=== PATIENT | female | born 1985 | race Two or more races ===

== ENCOUNTER 2024-02-01 12:16 | Emergency (ER) | payer OTHER ==
[~2024-02-01] VITALS: Ht 160 cm; Wt 81.6 kg
[2024-02-01] MEDS ORDERED: FOLIC ACID20 MG PO (13:08)
[2024-02-01 14:23] LABS: HEMOGLOBIN 12.4 g/dL (12.0-15.00); MEAN CELL VOLUME 90.1 fL (80.00-100.00); MEAN CORPUSCULAR HEMOGLOBIN 30.1 pg (27.00-32.0); MEAN CORPUSCULAR HGB CONC 33.5 g/dl (32.0-36.0); PLATELET COUNT 300 K/uL (150-450); RED BLOOD COUNT 4.11 M/uL (4.00-6.00)
[2024-02-01 14:34] LABS: PH,URINE 5.5 (5.0-8.0); URINE APPEARANCE Clear; URINE BILIRRUBIN Negative (NEGATIVE); URINE BLOOD Negative; URINE COLOR Yellow; URINE GLUCOSE Negative (NEGATIVE); URINE KETONE Negative (NEGATIVE); URINE LEUKOCYTE Trace; URINE NITRATE Negative; URINE PROTEIN Negative (NEGATIVE); URINE UROBILINOGEN 0.2 E.U./dl
[2024-02-01 14:35] LABS: URINE EPITHELIAL CELLS 6.4 uL (0.0-38.8); URINE WBC 26.9 uL (0.0-23.2)
[2024-02-01 14:41] LABS: URINE BACTERIA > 9821.5 uL (0.0-1933)
[2024-02-01 15:14] LABS: CALCIUM 9.4 mg/dL (8.5-10.1); CREATININE SERUM 0.65 mg/dL (0.55-1.02); GFR 103.13; POTASSIUM 3.95 mEq/L (3.5-5.1)
[2024-02-01] MEDS ORDERED: CEFTRIAXONE SODIUM 1,000 MG VIAL IV STA (16:10)
[2024-02-01] MEDS ORDERED: MEPERIDINE HCL/PF 25 MG/ML VIAL IM ONE (16:30)
== END 2024-02-01 17:17 | disposition home or self-care (01) ==
LOC: ER 12:17
PROVIDERS: General Practice
DX: N93.9 Abnormal uterine and vaginal bleeding, unspecified (principal); Z3A.01 Less than 8 weeks gestation of pregnancy

== ENCOUNTER 2024-02-17 16:21 | Emergency (ER) | payer OTHER ==
[~2024-02-17] VITALS: Ht 157.5 cm; Wt 81.6 kg
[~2024-02-17 16:21] MED LIST: FOLIC ACID20 MG PO
[2024-02-17 17:12] VITALS: BP 153/71; O2SAT 99
[2024-02-17] MEDS ORDERED: PRENATAL + DHA1 EAC1 PO (17:14)
[2024-02-17 20:26] LABS: HEMATOCRIT 38.4 % (36.0-45.00); HEMOGLOBIN 12.9 g/dL (12.0-15.00); MEAN CELL VOLUME 89.9 fL (80.00-100.00); MEAN CORPUSCULAR HEMOGLOBIN 30.3 pg (27.00-32.0); MEAN CORPUSCULAR HGB CONC 33.7 g/dl (32.0-36.0); PLATELET COUNT 315 K/uL (150-450); RED BLOOD COUNT 4.27 M/uL (4.00-6.00); RED CELL DISTRIBUTION WIDTH 12.1 % (11.5-14.5)
[2024-02-17 20:28] LABS: PH,URINE 5.5 (5.0-8.0); URINE APPEARANCE Clear; URINE BILIRRUBIN Negative (NEGATIVE); URINE BLOOD Small; URINE COLOR Yellow; URINE GLUCOSE Negative (NEGATIVE); URINE KETONE 15 (NEGATIVE); URINE LEUKOCYTE Trace; URINE NITRATE Negative; URINE PROTEIN Negative (NEGATIVE); URINE UROBILINOGEN 0.2 E.U./dl
[2024-02-17 20:29] LABS: URINE EPITHELIAL CELLS 5.2 uL (0.0-38.8); URINE WBC 40.6 uL (0.0-23.2)
== END 2024-02-17 21:32 | disposition home or self-care (01) ==
LOC: ER 16:23
PROVIDERS: General Practice
DX: O20.8 Other hemorrhage in early pregnancy (principal); Z3A.01 Less than 8 weeks gestation of pregnancy; N93.9 Abnormal uterine and vaginal bleeding, unspecified